=== PATIENT | female | born 1950 | race Caucasian/White ===

== ENCOUNTER → 2021-05-15 09:16 | Outpatient (BNVA) | payer MEDICARE, SELFPAY | PROVIDERS: Referring Provider Nurse Practitioner; Visit Provider Specialist | DX: M17.11 Unilateral primary osteoarthritis, right knee (principal) | CPT/HCPCS: 73560; 73565 ==

== ENCOUNTER 2021-05-23 06:00 | Outpatient (RCR) | payer MEDICARE, SELFPAY | END 2021-06-22 23:59 | disposition home or self-care (01) | LOC: SPT 06:00 | PROVIDERS: PCP Nurse Practitioner; Referring Provider Specialist; Visit Provider Specialist | DX: M17.11 Unilateral primary osteoarthritis, right knee (principal) | CPT/HCPCS: 97110; 97162 ==

== ENCOUNTER 2021-06-23 06:00 | Outpatient (RCR) | payer MEDICARE, SELFPAY | END 2021-07-05 23:00 | disposition home or self-care (01) | LOC: SPT 06:00 | PROVIDERS: PCP Nurse Practitioner; Referring Provider Specialist; Visit Provider Specialist | DX: M17.11 Unilateral primary osteoarthritis, right knee (principal) | CPT/HCPCS: 97110 ==

== ENCOUNTER 2022-09-27 10:01 | Outpatient (CLI) | payer MEDICARE, SELFPAY ==
--- NOTE | 2022-09-27 10:17 | XRR_ITS ---
PROCEDURE INFORMATION: Exam: XR Right Shoulder Exam date and time: 09/27/2022 10:34 AM Age: 72 years old Clinical indication: Pain; Shoulder; Right; Additional info: Pain in R shoulder TECHNIQUE: Imaging protocol: Radiologic exam of the right shoulder. Views: 2 or more views. COMPARISON: No relevant prior studies available. FINDINGS: Bones/joints: No acute fracture or dislocation. Mild acromioclavicular joint arthropathy. Soft tissues: Normal. XR/XR shoulder RT min 2V* [id number] IMPRESSION: 1. No acute fracture. 2. Mild AC joint arthropathy.
== END 2022-09-27 10:02 | disposition home or self-care (01) ==
PROVIDERS: PCP Nurse Practitioner Family; Visit Provider Nurse Practitioner Family
DX: M25.511 Pain in right shoulder (principal); M12.9 Arthropathy, unspecified
CPT/HCPCS: 73030

== ENCOUNTER 2022-11-12 08:31 | Outpatient (CLI) | payer MEDICARE, SELFPAY ==
--- NOTE | 2022-11-12 | MM_ITS ---
WS: [id number] BILATERAL 3D TOMOSYNTHESIS DIGITAL SCREENING MAMMOGRAPHY WITH CAD CLINICAL INFORMATION: SCREENING HISTORY: Screening mammogram. No current complaints. COMPARISON: 2016 TECHNIQUE: Bilateral CC and MLO views. FINDINGS: Scattered fibroglandular densities bilaterally. Small ovoid nodule upper outer RIGHT breast appears n ew from previous. Recommend further evaluation with RIGHT breast diagnostic mammography and ultrasoun d. LEFT breast is unremarkable. IMPRESSION: MM/[place] [id number] BI-RADS: 0-Incomplete: Need additional imaging evaluation FOLLOW UP: Need Additional Imaging
== END 2022-11-12 08:32 | disposition home or self-care (01) ==
PROVIDERS: PCP Nurse Practitioner Family; Visit Provider Nurse Practitioner Family
DX: Z12.31 Encounter for screening mammogram for malignant neoplasm of breast (principal)
CPT/HCPCS: 77063; 77067

== ENCOUNTER 2022-12-20 10:01 | Outpatient (CLI) | payer MEDICARE, SELFPAY ==
--- NOTE | 2022-12-20 10:08 | MM_ITS ---
WS: [id number] RIGHT 3D TOMOSYNTHESIS DIGITAL MAMMOGRAPHY WITH CAD CLINICAL INFORMATION: ABNORMAL MAMMO HISTORY: Additional views COMPARISON: 11/12/2022 TECHNIQUE: 4 views of the right breast were obtained. FINDINGS: Scattered fibroglandular densities of the right breast. Previously described 6 mm ovoid density upper outer RIGHT breast is persistent on spot compression views. Ultrasound is pending. ULTRASOUND BREAST RIGHT TECHNIQUE: Ultrasound right breast focused area of concern. CLINICAL INFORMATION: ABNORMAL MAMMO FINDINGS: Ultrasound RIGHT breast upper outer quadrant. At the 10 o'clock position, 5 cm from the nipple, there is a normal-appearing 6 mm lymph node with normal fatty hilum. No other suspicious findings in the u pper outer quadrant. Recommend return to annual screening mammography. IMPRESSION: MM/[place] [id number] BI-RADS: 2-Benign FOLLOW UP: 1 Year Follow-up Recommend return to annual screening mammography.
== END 2022-12-20 10:02 | disposition home or self-care (01) ==
PROVIDERS: PCP Nurse Practitioner Family; Visit Provider Nurse Practitioner Family
DX: R92.8 Other abnormal and inconclusive findings on diagnostic imaging of breast (principal)
CPT/HCPCS: 76642; 77061; G0279

== ENCOUNTER 2023-01-22 14:09 | Outpatient (CLI) | payer MEDICARE, SELFPAY ==
--- NOTE | 2023-01-22 14:20 | MR_ITS ---
WS: [id number] MRI RIGHT SHOULDER HISTORY: RIGHT SHOULDER PAIN COMPARISON: None available. TECHNIQUE: Multiplanar sequences of the shoulder joint are submitted. Moderate to severe AC joint arthritis with encroachment upon the myotendinous portion of the supraspi natus. Mild subacromial impingement. Biceps tendon is present at the bicipital groove. There is a par tial tear of the biceps tendon. Small amount of increased fluid in the tendon sheath. No os acromion. Fluid gap involving the supraspinatus tendon extends over a length of 9 mm directly over the humeral head. Tendon is retracted to the medial humeral head. Moderate to severe atrophy of the supraspinatus muscle. Additional mild atrophy of the subscapularis and the infraspinatus muscles. Increased fluid in the subscapularis recess. No additional rotator cuff tendon tears are identified. Moderate narrowi ng the glenohumeral joint. Small amount of marrow edema and subchondral cysts in the anterior inferio r glenoid. No definite labral tears are identified. There is some fraying along the articular surface s. IMPRESSION: 1. Complete tear supraspinatus tendon measures 9 mm over the superior humeral head. Supraspinatus ten don is retracted to the medial humeral head. 2. Moderate to severe AC joint arthritis with encroachment upon the myotendinous portion of the supra spinatus. 3. Partial tear biceps tendon with mild tenosynovitis. 4. Moderate to severe atrophy of the supraspinatus muscle. Mild atrophy of the subscapularis and infr aspinatus muscles. 5. Glenohumeral joint narrowing with subchondral cystic changes in the anterior inferior glenoid.
== END 2023-01-22 14:10 | disposition home or self-care (01) ==
PROVIDERS: PCP Nurse Practitioner Family; Visit Provider Nurse Practitioner Family
DX: M75.121 Complete rotator cuff tear or rupture of right shoulder, not specified as traumatic (principal); S46.211A Strain of muscle, fascia and tendon of other parts of biceps, right arm, initial encounter; X58.XXXA Exposure to other specified factors, initial encounter; M62.58 Muscle wasting and atrophy, not elsewhere classified, other site
CPT/HCPCS: 73221

== ENCOUNTER → 2023-02-20 13:40 | Outpatient (BNVA) | payer MEDICARE, SELFPAY | PROVIDERS: PCP Nurse Practitioner Family; Visit Provider Specialist | DX: M12.811 Other specific arthropathies, not elsewhere classified, right shoulder | CPT/HCPCS: 20610; 99214; J1100; J2795; J3301 ==

== ENCOUNTER → 2023-04-01 13:00 | Outpatient (BNVA) | payer MEDICARE, SELFPAY | PROVIDERS: PCP Nurse Practitioner Family; Visit Provider Specialist | DX: M17.11 Unilateral primary osteoarthritis, right knee (principal) | CPT/HCPCS: 73560; 73565; 99214 ==

== ENCOUNTER → 2023-04-18 10:58 | Outpatient (BNVA) | payer MEDICARE, SELFPAY | PROVIDERS: PCP Nurse Practitioner Family; Visit Provider Specialist | DX: M17.11 Unilateral primary osteoarthritis, right knee (principal) | CPT/HCPCS: 20610; J7318 ==

== ENCOUNTER → 2023-04-23 10:53 | Outpatient (BNVA) | payer MEDICARE, SELFPAY | PROVIDERS: PCP Nurse Practitioner Family; Referring Provider Nurse Practitioner Family; Visit Provider Specialist | DX: G56.02 Carpal tunnel syndrome, left upper limb (principal) | CPT/HCPCS: 95910; 95911 ==

== ENCOUNTER 2023-05-27 17:19 | Emergency (ER) | payer MEDICARE, SELFPAY ==
[2023-05-27 17:33] VITALS: BP 178/78; PULSE 66; RESP 12; TEMP 36.7; O2SAT 94; BMI 29.7
--- NOTE | 2023-05-27 17:44 | W.ED.EYEPROB ---
HPI - Eye Problem General: Chief complaint: Eye Problems Stated complaint: eye Time Seen by Provider: 05/27/23 17:36 Source: patient Mode of arrival: ambulatory History of Present Illness: 73-year-old female presents emergency room complaining of swelling redness some itching around the left eye. She does not recall getting a foreign body and its mildly inflamed and redness crusting at the edge of the eyelid minimal redness of the sclera. No grinding activities she does not believe she has a foreign body in the eye but it does itch at times. chief complaint: eye pain and eye redness Onset (ago): hour(s) Onset description: gradual Duration: constant Location: left eye Eye Symptoms: burning, redness and itching Associated symptoms: Denies cough, fever(s), headache(s), nausea, neck pain, numbness, rhinorrhea, short of breath, vomiting or weakness Treatments Prior to Arrival: none Review of Systems Const: Denies: fever(s) Eyes: Reports: eye discomfort and eye discharge; Denies: blurry vision or photophobia Card: Denies: chest pain Resp: Denies: dyspnea GI: Denies: nausea or vomiting : Denies: dysuria, urinary frequency or urinary urgency Musc: Denies: neck pain Skin/Breast: Denies: rash Neuro: Denies: headache(s) PFSH ED PFSH: Social History Smoking and tobacco/nicotine status: never used tobacco/nicotine Physical Exam Const: COMMON NORMALS: no acute distress GENERAL APPEARANCE: cooperative and comfortable ORIENTATION/CONSCIOUSNESS: Yes awake, Yes oriented to person, Yes oriented to place and Yes oriented to time HENMT: COMMON NORMALS: normocephalic, atraumatic and hearing grossly normal bilaterally HEAD & SCALP: normocephalic and atraumatic Eye: OTHER: Left eye is mildly reddened sclera slightly injected the upper and lower eyelids are inflamed swollen some crusting along the tarsal plate. Scant amount of purulent drainage Neuro: SENSORIUM/ORIENTATION: Yes oriented to person, Yes oriented to place and Yes oriented to time Skin: COMMON NORMALS: no rashes or lesions noted GENERAL SKIN EXAM: no rashes or lesions noted Course Vital Signs: Vital signs: Vital Signs Temperature 98.0 F 05/27/23 18:08 Pulse Rate 64 03/04/24 18:08 Respiratory Rate 12 05/27/23 18:08 Blood Pressure 156/82 05/27/23 18:08 Pulse Oximetry 97 05/27/23 18:08 Oxygen Delivery Me thod Room Air 05/27/23 17:54 MDM - Eye Problem Medical Decision Making Blepharitis left eye start oral antibiotics eyedrops warm compresses follow-up with ophthalmology optometry if not improving Medical Records I reviewed the patient's medical records. No radiology studies performed this visit Discharge Plan Discharge Patient Disposition: Home Clinical Impression: Blepharitis of left eye Condition: Stable Prescriptions: No Action Durolane 60 mg/3 mL syringe 3 ml intra-articular ONCE Qty: 3 0RF vitamin A-vitamin E 25,000-30 unit Capsule 1 cap PO DAILY calcium phos,dibas-vitamin D3 77-400 mg-unit Tablet 1 tab PO DAILY Collagen Skin Renewal 30-833.3 mg Tablet 1 tab PO DAILY acetaminophen 325 mg capsule 325 mg PO Q4H PRN (Reason: fever or pain) Qty: 60 0RF Colace 100 mg capsule 100 mg PO BID Qty: 60 0RF hydrocodone-acetaminophen 5-325 mg tablet 1 tab PO Q4H PRN (Reason: pain) Qty: 20 0RF metronidazole 500 mg tablet 500 mg PO BID 14 Days Qty: 28 0RF Discharge Orders: Discharge ED (Routine); Ordered 05/27/23 Ordered By: Augusto Casillas Referrals: Mary Anne Fitzpatrick FNP [Primary Care Provider] - Discharge Diet: Usual diet Discharge Activity: Resume usual activity Patient Instructions: Blepharitis (ED), Opioid Safety, Pain Management Activity Restrictions/Additional Instructions: Thank you for choosing [facility] for your healthcare needs today. Please realize this is an emergency room and that we are providing you with a medical screening exam and this may not be complete and all inclusive of all the testing and or work up that you may need to determine your ailment or severity of your illness. It is very important that you follow up as instructed or that you return to the Emergency Department should you have concerns or if your condition changes or worsens in any way. Coding Level of Care Code ED Screener Operator for Jensen Desir
[2023-05-27 17:54] VITALS: BP 156/82; PULSE 64; O2SAT 97
[2023-05-27] MEDS: fluorescein 1 mg Strip EYE-LEFT (17:56)
[2023-05-27] MEDS: tetracaine 0.5% Op Soln 4 mL Btl 1 DROP EYE-LEFT (17:56)
[2023-05-27 18:08] VITALS: BP 156/82; PULSE 64; RESP 12; TEMP 36.7; O2SAT 97
--- NOTE | 2023-05-28 09:18 | PC.NURSE ---
[facility] called and stated that they do not have cephalexin 750 mg available to them, they asked if it could be changed to [address] Casillas and he changed the prescription to 500 mg cephalexin PO TID for 7 days.
== END 2023-05-27 18:09 | disposition home or self-care (01) ==
PROVIDERS: Emergency Provider Family Medicine; PCP Nurse Practitioner Family
DX: L29.9 Pruritus, unspecified (principal); H01.00B Unspecified blepharitis left eye, upper and lower eyelids
CPT/HCPCS: 99283

== ENCOUNTER 2023-05-28 15:39 | Observation (INO) | payer MEDICARE, SELFPAY ==
[2023-05-23 09:23] LABS: Add Urine Microscopic? NO; Charge for UA Resulting for Rev
--- NOTE | 2023-05-23 09:26 | ECG_ITS ---
[facility] Test Date: 2023-05-23 Pat Name: Melina Mac Department: Room: Gender: Female Clinical Dietitian: : 1950 Requested By: Blade Kent Order Number: [id number] Nik MD: Tevin Jones M.D. Measurements Intervals [place] Rate: 61 P: 57 [place]: 174 QRS: -39 QRSD: 97 T: 33 QT: 372 QTc: 377 Interpretive Statements SINUS RHYTHM LEFT AXIS DEVIATION [QRS AXIS < -30] LOW QRS VOLTAGE IN PRECORDIAL LEADS [QRS DEFLECTION < 1.0 mV IN CHEST LEADS] INCOMPLETE RIGHT BUNDLE BRANCH BLOCK [90+ ms QRS DURATION, TERMINAL R IN V1/V2, 40+ ms S IN I/aVL/V4/V5/V6] POSSIBLE ANTERIOR MYOCARDIAL INFARCTION , OF INDETERMINATE AGE [30 ms Q WAVE IN V3/V4, OR R < 0.2 mV IN V4] No previous ECG available for comparison Electronically Signed On 05-23-2023 21:14:53 SPRING TIER by Tevin Jones M.D. [id number]
[2023-05-23 09:29] LABS: Basophils % 0.4 %; Eosinophils # 0.4 10^3/uL (0.0-0.8); Hematocrit 41.2 % (36-47); Lymphocytes # 2.2 10^3/uL (0.8-4.8); Lymphocytes % 30.7 %; Mean Corpuscular HGB Conc 31.6 g/dL (30-55); Mean Corpuscular Hemoglobin 30.8 pg (27-33); Mean Corpuscular Volume 97.6 fl (85-98); Mean Platelet Volume 9.2 fL (7.4-10.4); Monocytes # 0.6 10^3/uL (0.2-0.9); Monocytes % 8.3 %; Neutrophils # 3.92 10^3/uL (1.8-7.7); Neutrophils % 54.3 %; Nucleated Red Blood Cells % 0 %; Platelet Count 267 10^3/cmm (157-399); Red Blood Count 4.22 10^6/uL (3.85-5.65); White Blood Count 7.21 10^3/uL (3.29-11.43)
[2023-05-23 09:40] LABS: Bilirubin Urine Neg (Negative); Blood Urine Neg (Negative); Glucose Urine UA Norm (Normal); Ketones Urine Negative (Negative); Leukocyte Esterase Urine Negative (Negative); Nitrate Urine Negative (Negative); Protein Urine Neg (Negative); Specific Gravity, Urine 1.015 (1.005-1.030); Urine Appearance Clear (CLEAR); Urine Color Yellow (Yellow); Urobilinogen Urine Neg (Negative); pH Urine 6 (5-7)
[2023-05-23 09:54] LABS: Alanine Aminotransferase 19 U/L (0-33); Albumin Level 3.9 g/dL (3.5-5.2); Alkaline Phosphatase 97 U/L (35-105); Aspartate Amino Transferase 16 U/L (0-32); Blood Urea Nitrogen 14 mg/dL (8-23); Calcium 9.3 mg/dL (8.5-10.5); Carbon Dioxide 26 mmol/L (22-29); Chloride 103 mmol/L (98-107); Globulin 2.4 g/dL (1.3-4.6); Glucose 101 mg/dL (65-115); Osmolality Calculated 289 mOsm/kg (285-295); Sodium 139 mmol/L (136-145); Total Bilirubin 0.3 mg/dL (0.15-1.2); Total Protein 6.3 g/dL (6.6-8.7)
--- NOTE | 2023-05-23 10:18 | ANES.PREANE2 ---
Pre-Anesthetic Assessment Height/Weight: Height 1.65 m Operation Date: 05/28/23 12:45 Proposed Procedures p Total vaginal hysterectomy, bilateral salpingo-oophorectomy 58026, Anterior and posterior colporrhaphy 85142, single incision sling 27028,N81.10,N81.2,(Not Applicable) - Micah Wharton MD s Salpingo-Oophorectomy (Vaginal)(Not Applicable) - Micah Wharton MD s Anterior Repair Anterior Colporrhaphy(Not Applicable) - Micah Wharton MD s Posterior Repair Posterior Colporrhaphy(Not Applicable) - Micah Wharton MD s Sling Single Incision Sling(Not Applicable) - Micah Wharton MD Familial anesthetic complications: none Was Beta David taken within 24 hours: N/A Was Clonidine taken within 24 hours: N/A Social No alcohol and No tobacco Exam alert, oriented x 3, clear to auscultation bilaterally and regular rate & rhythm Airway Submandibular: within normal limits Cervical ROM: within normal limits Mallampati: Class II Dentition: chipped Musc/skel Osteoarthritis/DJD Anesthetic Plan ASA status: 1 Anesthesia: General Medications/Allergies Home Medications Medication Instructions Recorded Confirmed Last Taken Type hyaluronate sodium, stabilized 60 3 ml intra-articular ONCE #3 mL 04/01/23 05/23/23 04/30/23 Rx mg/3 mL intra-articular syringe (Durolane) Allergies Allergy/AdvReac Type Severity Reaction Status Date / Time celecoxib [From Celebrex] Allergy ADR-Halluci Verified 05/20/23 08:17 nating hydrocodone Allergy ADR-Anxiety Verified 05/20/23 08:17 [facility] Anesthesia Social History Smoking and tobacco/nicotine status: never used tobacco/nicotine Data Anesthesia 05/23/23 09:10 05/23/23 09:10 Short CBC 05/23/23 Range/Units 09:10 WBC 7.21 (3.29-11.43) 10^3/uL Hgb 13.00 (11.27-16.99) g/dL Hct 41.2 (36-47) % MCV 97.6 (85-98) fl Plt Count 267 (157-399) 10^3/cmm Neut % (Auto) 54.3 % Neut # (Auto) 3.92 (1.8-7.7) 10^3/uL BMP 05/23/23 09:10 Sodium 139 Potassium 4.0 Chloride 103 Carbon Dioxide 26 BUN 14 Creatinine 0.5 Glucose 101 Calcium 9.3 Liver Function 05/23/23 Range/Units 09:10 Total Bilirubin 0.3 (0.15-1.2) mg/dL AST 16 (0-32) U/L ALT 19 (0-33) U/L Alkaline Phosphatase 97 (35-105) U/L Albumin 3.9 (3.5-5.2) g/dL Urine 05/23/23 Range/Units 09:12 Urine Color Yellow (Yellow) Urine Appearance Clear (CLEAR) Urine pH 6 (5-7) Ur Specific [place] 1.015 (1.005-1.030) Urine Protein Neg (Negative) Urine Glucose (UA) Norm (Normal) Urine Ketones Negative (Negative) Urine Nitrate Negative (Negative) Urine Bilirubin Neg (Negative) Ur Leukocyte Esterase Negative (Negative) Cardiac Studies: No Data to Display
[2023-05-28] VITALS (17 sets, daily range): BP systolic 91–145; BP diastolic 48–78; PULSE 50–95; RESP 15–17; TEMP 36.6–36.8; O2SAT 87–98; BMI 29.9
[2023-05-28] MEDS: sodium chloride 0.9% 1,000 ML 30 ML IV (11:26)
--- NOTE | 2023-05-28 11:26 | P.ANESASSM_ITS ---
Pre-Anesthetic Assessment Height/Weight: Height 1.65 m Weight 81.647 kg Temp Pulse Resp BP Pulse Ox O2 Del Method 98.3 F 68 16 145/73 95 Room Air 05/28/23 11:02 05/28/23 11:02 05/28/23 11:02 05/28/23 11:02 05/28/23 11:02 05/28/23 11:02 Preop Diagnosis: uterine prolapse, cystocele, rectocele Operation Date: 05/28/23 12:45 Proposed Procedures p Total vaginal hysterectomy, bilateral salpingo-oophorectomy 54214, Anterior and posterior colporrhaphy 75064, single incision sling 38124,N81.10,N81.2,(Not Applicable) - Micah Wharton MD s Salpingo-Oophorectomy (Vaginal)(Not Applicable) - Micah Wharton MD s Anterior Repair Anterior Colporrhaphy(Not Applicable) - MD juan daniel Gibson Posterior Repair Posterior Colporrhaphy(Not Applicable) - Micah Wharton MD s Sling Single Incision Sling(Not Applicable) - Micah Wharton MD Last intake: Intake Last Liquid Date 05/27/23 Last Liquid Time 23:00 Last Solid Date 05/27/23 Last Solid Time 20:00 Social No alcohol and No tobacco Airway Submandibular: within normal limits Cervical ROM: within normal limits Mallampati: Class I Anesthetic Plan Anesthesia: General Risk of > 500 ml blood loss (7ml/kg in children): No Medications/Allergies Home Medications Medication Instructions Recorded Confirmed Last Taken Type hyaluronate sodium, stabilized 60 3 ml intra-articular ONCE #3 mL 04/01/23 05/23/23 04/30/23 Rx mg/3 mL intra-articular syringe (Durolane) cephalexin 750 mg capsule 750 mg PO BID 7 days #14 caps 05/27/23 05/28/23 Unknown Rx tobramycin-dexamethasone 0.3 %-0.1 1 applic ophthalmic (eye) QID 7 05/27/23 05/28/23 Unknown Rx % eye ointment (TobraDex) days #3.5 grams ascorbic acid 30 mg-collagen, 1 tab PO DAILY 05/28/23 05/28/23 05/24/23 History hydrolyzed 833.3 mg tablet (Collagen Skin Renewal) calcium phosphate,dibasic 77 1 tab PO DAILY 05/28/23 05/28/23 05/28/23 History mg-vitamin D3 400 unit tablet vitamin A-vitamin E 25,000 unit-30 1 cap PO DAILY 05/28/23 05/28/23 05/24/23 History unit capsule Allergies Allergy/AdvReac Type Severity Reaction Status Date / Time celecoxib [From Celebrex] Allergy ADR-Halluci Verified 05/28/23 10:56 [facility] hydrocodone Allergy ADR-Anxiety Verified 05/28/23 10:56 [facility] Anesthesia Social History Smoking and tobacco/nicotine status: never used tobacco/nicotine Data Anesthesia 05/23/23 09:10 05/23/23 09:10 Cardiac Studies: 2 No Data to Display
[2023-05-28] MEDS: enoxaparin 30 mg/0.3 mL Syringe SUBCUT (11:27)
[2023-05-28] MEDS: scopolamine 1.5 Patch 1 PATCH TRANSDERMA (11:30)
--- NOTE | 2023-05-28 12:10 | W.PM.OPSUD ---
Surgery/Procedure H&P Update DATE OF PROCEDURE: May 28, 2023 DATE H&P PERFORMED: 05/20/23 H&P UPDATE INFORMATION: I have reviewed H&P completed within last 30 days, I have examined patient prior to procedure and No changes to prior documentation PREOP DIAGNOSIS: uterine prolapse, cystocele, rectocele PLANNED PROCEDURE: Operation Date: 05/28/23 12:45 Proposed Procedures p Total vaginal hysterectomy, bilateral salpingo-oophorectomy 79077, Anterior and posterior colporrhaphy 38238, single incision sling 47977,N81.10,N81.2,(Not Applicable) - Micah Wharton MD s Salpingo-Oophorectomy (Vaginal)(Not Applicable) - Micah Wharton MD s Anterior Repair Anterior Colporrhaphy(Not Applicable) - Micah Wharton MD s Posterior Repair Posterior Colporrhaphy(Not Applicable) - Micah Wharton MD s Sling Single Incision Sling(Not Applicable) - Micah Wharton MD
[2023-05-28] MEDS: ceFOXitin 2,000 MG in sodium chloride 0.9% (plus) 50 ML 100 MG IV (12:34)
[2023-05-28] MEDS: lidocaine-epi 1% 20 mL INJ INJECTION ×2 (13:09→15:20)
--- NOTE | 2023-05-28 15:25 | P.OP_ITS ---
Operative Report Date of procedure: May 28, 2023 Pre-op diagnosis: Pelvic organ prolapse stage III Cystocele stage III Rectocele stage III Post-op diagnosis: same Procedure done: Total vaginal hysterectomy with right salpingo-oophorectomy Anterior colporrhaphy augmented with allograft Single incision mid urethral sling Posterior colporrhaphy Sacrospinous fixation Cystoscopy Specimens removed/disposition: Uterus Right fallopian tube Surgeon: Micah Wharton MD Estimated blood loss (mL): 75 IV fluids (mL): 1,000 Urine output (mL): 200 Procedure: After informed consent and risks, benefits, indications and alternatives reviewed with the patient was taken to the operating room. The patient was placed in dorsal lithotomy position prepped, and draped in the usual sterile fashion. The pre-procedure timeout verifying the correct patient, procedure, site and side, could not requirements was performed and acknowledge by the OR team. A Soria catheter was placed. A Bookwalter vaginal retractor was placed into the vagina in usual manner visualize the cervix. Cervix was grasped with a single tooth tenaculum and circumferentially infiltrated with 2% lidocaine with epinephrine. Then cervix was circumferentially incised with bovie and the bladder was dissected off the pubovesical cervical fascia anteriorly with a sponge stick and Metzenbaum scissors. The anterior peritoneal reflection was identified and the anterior cul-de-sac was entered sharply with Metzenbaum scissors. The same procedure was performed posteriorly and a posterior colpotomy was made through the posterior cul-de-sac space without difficulty and the posterior blade of the Bookwalter vaginal retractor was advanced posteriorly into the cul-de-sac. At this time, the left and right uterosacral ligaments were isolated and ligated with 0 Vicryl. The LigaSure device was placed over the uterosacral ligaments on either side and was then used in a serial fashion up through the cardinal ligaments bilaterally cross-clamped, cut, and sealed with the LigaSure device. Finally, the uterine arteries were cross-clamped, cut, sealed and ligated with the LigaSure device. Hemostasis was assured. The broad ligaments were then serially clamped, sealed and cut with the LigaSure device on both sides. Excellent hemostasis was visualized. Both cornua were clamped, sealed and cut with the LigaSure device. Then the pedicles were then suture ligated with excellent hemostasis. The uterus was excised and submitted for pathologic evaluation. No other abnormalities were noted in the pelvic cavity. Then the right side Infundibular ligament was identified. The ureter was confirmed along the pelvic side wall and peristalsis was noted. The LigaSure device was then used to clamp, sealed and transcepted at middistance, again being sure to be clear of the ureter and the fallopian tube. The ovary could not safely be removed. The same attempt was performed on the left side but the left ovary was also could not safely be removed. Good hemostasis was assure on both sides. The peritoneum was then closed in a pursestring fashion with 0 Vicryl suture. The vaginal cuff angles were closed with [id number] #0 Vicryl suture on both sides and transfixed with the ipsilateral cardinal and uterosacral ligaments. The remainder of the vaginal cuff was closed with #0 Vicryl in a running locked fashion. Then proceeded to perform the mid urethral sling. The anterior vaginal mucosa beneath the midurethra was infiltrated with 0.5% Marcaine with epinephrine. A vertical midline incision was made beneath the midurethra, nearly 1.5 cm length. Careful submucosal dissection was performed bilaterally up to the interior portion of the inferior pubic ramus. The insertion of adductor longus tendon on the patient?s pubic ramus was identified as reference land madeline. Palpated the notch along the internal edge of ischiopubic ramus where the adductor longus tendon and the inferior pubic ramus meet. The Altis single incision sling (SIS) was selected. Then the needle of the SIS inserted aiming at the location of this notch. One of the integrated self- fixating tips place onto the needle by sliding it over the end of the needle. The needle/sling assembly was inserted toward the location of identified reference notch making sure that the flat of the handle is perpendicular to the desired path. The needle was tracked along the posterior surface of the ischiopubic ramus until the midline madeline on the mesh is approximately at the midline position under the urethra. The needle was removed and the same was repeated on the contralateral side until the appropriate sling tension under the urethra was achieved ensuring that the mesh lays flat. The needle was removed and vaginal incision was closed in a running interlocking fashion with 2-0 Vicryl. Then the vaginal mucosa was then injected in the midline with normal saline. The vaginal mucosa was scored in the midline with the Bovie approximately 1 cm medial to the urethral meatus to 1 cm distal to the vaginal cuff. This vaginal mucosa was then undermined and then incised in the midline with the Metzenbaum scissors. The lateral aspects of the vaginal mucosa were then grasped with the Allis clamps and the vaginal mucosa was then dissected off the underlying fascia with the Metzenbaum scissors. Again, there was noted to be quite a bit of oozing at the incision, which was controlled with cautery. After adequate dissection was performed, bilaterally. An Coloplast dermis allograft was modified at time of application to fit spacea, 3 x 3 cm piece . The all ograft was placed in front of cystocele ready to be implanted facing the vagina mucosa. Suture is placed at distal end of graft and placed towards vaginal cuff. Final suture is placed on proximal portion of the graft to complete the placement overlying the bladder. Then Interrupted vertical mattress sutures of 0 Vicryl were used to elevate the cystocele superiorly. The excessive vaginal mucosa was then trimmed with the Metzenbaum scissors and the vaginal mucosa was then reapproximated in the running interlocking fashion with 2-0 Vicryl. A posterior repair was performed next. An incision was made across the introitus. Metzenbaum scissors were used to tunnel beneath posterior vaginal mucosa until the apex of the rectocele bulge was reached. The posterior vaginal mucosa is opened in the routine fashion as described previously in Posterior Repair. A finger is inserted through the incision in the posterior vaginal mucosa, dissecting out the rectovaginal space (RVS). The right rectal pillar (RRP) is identified. The rectal pillar can be bluntly perforated either with the finger and with the tip of a long Zita clamp. A thing malleable retractor is used for exposing the rectovaginal space in order to enter the pararectal space with retraction of the cardinal ligament, vagina, and rectum. Displacing the rectum to the left and the cardinal ligament and ureter anteriorly. A sponge dissector is used to bluntly dissect the sacrospinous ligament removing areolar tissue. The ischial spine was palpated directly, and a area approximately 2 cm medial to the spine was selected for insertion of the Anchorsure transvaginal sacrospinous fixation system. One end of the suture of Anchoresure system inserted through the sacrospinous ligament is placed through the muscular layer of the vagina. In a similar manner, the second suture is placed. The opposite end of the suture in the sacrospinous ligament is left free and held on a small hemostat. Then traction on this suture will draw the vaginal vault directly to the ligament, where a square knot affixes it to the sacrospinous ligament. After the kem stich is tied the second safety stich is tied. Then the colporrhaphy/vaginal repair is carried out in routine fashion. At this point, the rectum was from the posterior vaginal mucosa using sharp and blunt dissection, and the rectal bulge imbricated in the midline with interrupted sutures of 2-0 vicryl suture. Levator ani muscles on either side were approximated in the midline with interrupted 0 Vicryl sutures. Excess posterior vaginal mucosa was excised, and the vaginal episiotomy was repaired by approximating the posterior vaginal mucosa with a suture of Vicryl #0. The patient was given indigo carmine IV. At this time, instruments were removed from the vagina at hemostasis assured. Then the Soria catheter was removed and cystoscope was inserted. The bladder was filled with sterile water. Complete evaluation of the bladder mucosa was performed noting no lacerations, dimpling, tears, bleeding of the mucosa or muscular layers. Both ureteral orifices were identified. Prompt excretion of urine from both ureteral orifices was noted. Cystoscope was withdrawn. Soria catheter was then placed yielding clear michael urine. A vaginal packing with Premarin cream was placed and the patient was taken out of dorsal lithotomy position and awakened from the general anesthesia. The patient tolerated the procedure well and was taken to the PACU recovery room in a stable condition. Sponge, lap, needle and instruments counts were correct x3.
--- NOTE | 2023-05-28 17:04 | ANE.PACU2 ---
Inpatient post-anesthesia follow up: Vital signs: Temperature 98.1 F Pulse Rate 91 Respiratory Rate 16 Blood Pressure 125/65 Pulse Oximetry 94 Oxygen Delivery Me thod Nasal Cannula Oxygen Flow Rate 2 Fraction of Inspir ed Oxygen Additional Comments: no apparent anesthetic complications noted
[2023-05-28] MEDS: ketorolac 30 mg/mL INJ IVP ×2 (17:48→22:17)
[2023-05-28] MEDS: docusate sodium 100 mg Capsule PO (17:48)
[2023-05-28] MEDS: dextrose 5%-lactated ringers 1,000 ML 125 ML IV (22:59)
[2023-05-29] VITALS: O2SAT 96
[2023-05-29 00:42] VITALS: O2SAT 89
[2023-05-29 00:43] VITALS: O2SAT 93
[2023-05-29 03:15] VITALS: BP 106/55; PULSE 51; RESP 16; O2SAT 95
[2023-05-29] MEDS: ketorolac 30 mg/mL INJ IVP (04:37)
[2023-05-29 04:57] LABS: Hematocrit 34.1 % (36-47); Mean Corpuscular HGB Conc 32.3 g/dL (30-55); Mean Corpuscular Hemoglobin 31.2 pg (27-33); Mean Corpuscular Volume 96.6 fl (85-98); Platelet Count 240 10^3/cmm (157-399); Red Blood Count 3.53 10^6/uL (3.85-5.65); White Blood Count 19.45 10^3/uL (3.29-11.43)
--- NOTE | 2023-05-29 09:10 | PC.NURSE ---
Pt voided 75mL and post void residual was 12mL
[2023-05-29] MEDS: docusate sodium 100 mg Capsule PO (10:38)
[2023-05-29] MEDS: ibuprofen 800 mg tablet PO (10:50)
[2023-05-29 10:51] VITALS: BP 101/61; PULSE 58; RESP 16; TEMP 36.5; O2SAT 98
--- NOTE | 2023-05-29 11:29 | P.DS_ITS ---
Discharge Providers [employer] Date of Admission: 05/28/23 15:39 Date of Discharge: 05/29/23 Attending Provider at Admission: Micah Wharton MD Attending Provider at Discharge: Micah Wharton MD Primary Care Provider: TISHA Taylor Reason for Visit Reason for Visit: N81.10, N81.2, N81.6 Hospital Course Hospital Course Mrs. Mac 73-year-old female with a history of pelvic organ prolapse cystocele stage III rectocele stage III admitted for total vaginal hysterectomy, anterior colporrhaphy augmented with allograft, mid urethral sling, posterior colporrhaphy and sacrospinous fixation. The procedures were performed without complication. Overnight observation was uneventful. She is afebrile and hemodynamically stable postoperative day 1. Tolerating diet well. Ambulating without difficulty. She was counseled regarding pelvic rest for 6 weeks (no sex, no tampons, no vaginal douches). Return to the emergency room if any fever, increased bleeding or pain. She was also counseled regarding soft mechanical diet for the next 2 weeks. Physical Exam Narrative: GA: Alert and oriented ?3. HEENT: WNL. Heart: Regular rate and rhythm. Lungs: Clear to auscultation bilaterally. Abdomen: Bowel sounds present, nontender. COMPLIANCE PARALEGAL: scant bleeding. Extremities: No edema, no cyanosis, no calves pain. Urinary Catheter Management: Soria: Cath Placed During This Visit: yes, but has since been removed by the nurse Reason for Continuing Indwelling Catheter: Decision to DC Catheter Urinary Catheter Date of Insertion: 05/28/23 Urinary Catheter Time of Insertion: 13:00 Date Urinary Catheter Removed: 05/29/23 Time Urinary Catheter Discontinued: 05:00 History History History 2 Term 2 0 Miscarriages/Ectopic 0 Living Children 2 Discharge Data Studies Completed and Pending Pending at discharge Category Date Time Status Pathology: Surgical [PTH] Routine Pth 05/28/23 15:28 Received Laboratory Results WBC 19.45 10^3/uL (3.29-11.43) H 05/29/23 04:53 RBC 3.53 10^6/uL (3.85-5.65) L 05/29/23 04:53 Hgb 11.00 g/dL (11.27-16.99) L 05/29/23 04:53 Hct 34.1 % (36-47) L 05/29/23 04:53 MCV 96.6 fl (85-98) 05/29/23 04:53 MCH 31.2 pg (27-33) 05/29/23 04:53 MCHC 32.3 g/dL (30-55) 05/29/23 04:53 RDW 13.0 % (12.1-15.1) 05/29/23 04:53 Plt Count 240 10^3/cmm (157-399) 05/29/23 04:53 MPV 9.0 fL (7.4-10.4) 05/29/23 04:53 Neut % (Auto) 54.3 % 05/23/23 09:10 Lymph % (Auto) 30.7 % 05/23/23 09:10 [place] % (Auto) 8.3 % 05/23/23 09:10 Eos % (Auto) 6.0 % 05/23/23 09:10 Baso % (Auto) 0.4 % 05/23/23 09:10 Neut # (Auto) 3.92 10^3/uL (1.8-7.7) 05/23/23 09:10 Lymph # (Auto) 2.2 10^3/uL (0.8-4.8) 05/23/23 09:10 [place] # (Auto) 0.6 10^3/uL (0.2-0.9) 05/23/23 09:10 Eos # (Auto) 0.4 10^3/uL (0.0-0.8) 05/23/23 09:10 Baso # (Auto) 0.0 10^3/uL (0.0-0.1) 05/23/23 09:10 Nucleated RBC % (auto) 0 % 05/23/23 09:10 Nucleated RBCs # 0.0 /100WBC 05/23/23 09:10 Sodium 139 mmol/L (136-145) 05/23/23 09:10 Potassium 4.0 mmol/L (3.5-5.1) 05/23/23 09:10 Chloride 103 mmol/L (98-107) 05/23/23 09:10 Carbon Dioxide 26 mmol/L (22-29) 05/23/23 09:10 Anion Gap 14.0 (5-19) 05/23/23 09:10 BUN 14 mg/dL (8-23) 05/23/23 09:10 Creatinine 0.5 mg/dL (0.5-0.9) 05/23/23 09:10 GFR Calculation Not Reportable 05/23/23 09:10 Glucose 101 mg/dL (65-115) 05/23/23 09:10 Calculated Osmolality 289 mOsm/kg (285-295) 05/23/23 09:10 Calcium 9.3 mg/dL (8.5-10.5) 05/23/23 09:10 Total Bilirubin 0.3 mg/dL (0.15-1.2) 05/23/23 09:10 AST 16 U/L (0-32) 05/23/23 09:10 ALT 19 U/L (0-33) 05/23/23 09:10 Alkaline Phosphatase 97 U/L (35-105) 05/23/23 09:10 Total Protein 6.3 g/dL (6.6-8.7) L 05/23/23 09:10 Albumin 3.9 g/dL (3.5-5.2) 05/23/23 09:10 Globulin 2.4 g/dL (1.3-4.6) 05/23/23 09:10 Urine Color Yellow (Yellow) 05/23/23 09:12 Urine Appearance Clear (CLEAR) 05/23/23 09:12 Urine pH 6 (5-7) 05/23/23 09:12 Ur Specific [place] 1.015 (1.005-1.030) 05/23/23 09:12 Urine Protein Neg (Negative) 05/23/23 09:12 Urine Glucose (UA) Norm (Normal) 05/23/23 09:12 Urine Ketones Negative (Negative) 05/23/23 09:12 Urine Blood Neg (Negative) 05/23/23 09:12 Urine Nitrate Negative (Negative) 05/23/23 09:12 Urine Bilirubin Neg (Negative) 05/23/23 09:12 Urine Urobilinogen Neg mg/dL (Negative) 05/23/23 09:12 Ur Leukocyte Esterase Negative (Negative) 05/23/23 09:12 Blood Type A Positive 05/28/23 11:15 Rho(D) Type Rh positive 05/28/23 11:15 Antibody Screen Negative 05/28/23 11:15 Vitals Last Vital Signs Temp 97.7 F 05/29/23 10:51 Pulse 58 L 05/29/23 10:51 Resp 16 05/29/23 10:51 BP 101/61 05/29/23 10:51 Pulse Ox 98 05/29/23 10:51 O2 Del Method Room Air 05/29/23 10:51 O2 Flow Rate 2 05/29/23 03:15 Results Labs OB ([facility]): Blood Type A Positive 05/28/23 Antibody Screen Negative 05/28/23 Hct 34.1 % (36-47) L 05/29/23 Hgb 11.00 g/dL (11.27-16.99) L 05/29/23 Rho(D) Type Rh positive 05/28/23 Plt Count 240 10^3/cmm (157-399) 05/29/23 Discharge Plan Discharge Patient Disposition: Home Condition: Good Prescriptions: New hydrocodone-acetaminophen 5-325 mg tablet 1 tab PO Q4H PRN (Reason: pain) Qty: 20 0RF metronidazole 500 mg tablet 500 mg PO BID 14 Days Qty: 28 0RF acetaminophen 325 mg capsule 325 mg PO Q4H PRN (Reason: fever or pain) Qty: 60 0RF docusate sodium [Colace] 100 mg capsule 100 mg PO BID Qty: 60 0RF nitrofurantoin macrocrystal 100 mg capsule 100 mg PO BID 5 Days Qty: 10 0RF Rx Instructions: must administer with a meal/food Continued Durolane 60 mg/3 mL syringe 3 ml intra-articular ONCE Qty: 3 0RF cephalexin 750 mg capsule 750 mg PO BID 7 Days Qty: 14 0RF TobraDex 0.3-0.1 % ointment 1 applic ophthalmic (eye) QID 7 Days Qty: 3.5 0RF Rx Instructions: space evenly during waking hours Biotene 25,000-30 unit Capsule 1 cap PO DAILY Vitamin D (with calcium) 77-400 mg-unit Tablet 1 tab PO DAILY Collagen Skin Renewal 30-833.3 mg Tablet 1 tab PO DAILY Discharge Orders: Discharge Order (Routine); Ordered 05/29/23 Ordered By: Micah Wharton Referrals: Micah Wharton MD [Physician] - 2 weeks Discharge Diet: Soft Mechanical Discharge Activity: Limit activity as instructed Patient Instructions: Bladder Sling for Women (GEN), Vaginal Hysterectomy (GEN), Anterior Vaginal Repair (GEN), Posterior Vaginal Repair (GEN), Opioid Safety Activity Restrictions/Additional Instructions: 1. Please call [facility] on next working day to make your post-operative appointment in 2 weeks. 2. Please stay home until you come back to the clinic on first post- hospatilization check up. 3. Please follow instructions on your medications CAREFULLY. 4. If you have abdominal incision, do not cover it unless dressing is necessary because of drainage. OK to shower, but avoid bath. Leave steri-strips until they fall off. If they are still on one week after surgery, you may remove them. 5. If you had vaginal surgery or vaginal repair, Dr. Wharton may instruct you to take SITZ bath. 6. Yellow, blood tinged odorous vaginal discharge is usually normal after hysterectomy or vaginal surgeries. 7. No SEXUAL INTERCOURSE, tampons, or douches until you are completely released from the post-operative care. 8. Avoid constipation by eating right and maybe using some Metamucil or Milk of Magnesia. 9. All prescription refills are given during the working hours. Please do no wait till it runs out. Call the clinic at [phone] before your medication runs out. The clinic will get in touch with your doctor to prescribe medications if necessary. 10. Please remain within 40 mile radius from our hospital because emergencies do happen now and then during the post-operative period. 11. If you have stairs at home, take one step at a time slowly and minimize the number of trips. It helps to stay in one floor for the next few days. No lifting except what you can lift by one hand until you are released from the post-operative care. 12. Driving is discouraged until you are well healed. It may be 3-4 weeks before you feel strong enough to drive. You should be able to turn and look through the rear window without pain and you should be able to push the brake pedal very hard without pain before you drive. No fast rules, but SAFETY should be your primary concern. DO NOT drive if you are on sedating medications such as narcotics. 13. Call the clinic (during working hours) to make urgent appointment or go to the Emergency room, if any of the following occurs: i. Vaginal bleeding becomes heavy, more than a period. ii. Incision becomes red and sore, or drains pus. iii. Your TEMPERATURE is over 100.4F or you have chill. iv. IV site becomes red and swollen (a little ``knot?? is usually OK) v. Persistent nausea and vomiting vi. Persistent constipation or diarrhea vii. Rash or allergic reaction to medications. Discharge Attestations [employer] Time Spent in Discharge Care*: greater than 30 min Coding Level of Care Code Acute Code for Chg Fwd
[2023-05-29 12:45] VITALS: BP 105/62; PULSE 63; RESP 16; TEMP 36.7; O2SAT 96
== END 2023-05-29 13:00 | disposition home or self-care (01) ==
LOC: OBGYN 15:41
PROVIDERS: Admitting Provider Obstetrics & Gynecology; PCP Nurse Practitioner Family; Visit Provider Obstetrics & Gynecology
PROC: (CPT 57260; principal; 2023-05-28 12:35)
PROC: 0JQC0ZZ Repair Pelvic Region Subcutaneous Tissue and Fascia, Open Approach (ICD-10-PCS; CPT 57240; 2023-05-28 12:35)
PROC: (CPT 57250; 2023-05-28 12:35)
PROC: (CPT 57288; 2023-05-28 12:35)
PROC: (CPT 58700; 2023-05-28 12:35)
DX: N81.3 Complete uterovaginal prolapse (principal); N72 Inflammatory disease of cervix uteri
CPT/HCPCS: 57260; 57282; 57288; 58262; 36415; 80053; 81003; 85025; 85027; 86850; 86900; 88307; 93005; 96374; 96376; C1713; C1762; G0378; J0694; J1100; J1650; J1885; J2405; J2704; J3010; J3490; J7030; J7121

== ENCOUNTER → 2023-06-10 15:35 | Outpatient (BNVA) | payer MEDICARE, SELFPAY | PROVIDERS: PCP Nurse Practitioner Family; Referring Provider Nurse Practitioner Family; Visit Provider Specialist | DX: G56.02 Carpal tunnel syndrome, left upper limb (principal) | CPT/HCPCS: 36415; 73130; 80053; 81001; 85025; 87086; 99214 ==

== ENCOUNTER → 2023-07-02 09:09 | Outpatient (BNVA) | payer MEDICARE, SELFPAY | PROVIDERS: PCP Nurse Practitioner Family; Visit Provider Family Medicine | DX: Z01.818 Encounter for other preprocedural examination (principal) | CPT/HCPCS: 80053; 81003; 85025 ==

== ENCOUNTER 2023-07-18 06:41 | Day surgery (SDC) | payer MEDICARE, SELFPAY ==
[2023-07-18] VITALS (11 sets, daily range): BP systolic 100–143; BP diastolic 52–73; PULSE 63–77; RESP 12–20; TEMP 36–36.6; O2SAT 93–100; BMI 28.9
[2023-07-18] MEDS: sodium chloride 0.9% 1,000 ML 30 ML IV (07:00)
[2023-07-18] MEDS: acetaminophen 1,000 MG/100 ML PIGGYBACK 400 MG IV (07:00)
[2023-07-18] MEDS: gabapentin 300 mg Capsule PO (07:01)
--- NOTE | 2023-07-18 07:40 | P.ANESASSM_ITS ---
Pre-Anesthetic Assessment Height/Weight: Height 1.65 m Weight 78.925 kg Temp Pulse Resp BP Pulse Ox O2 Del Method 97.3 F L 63 18 143/73 96 Room Air 07/18/23 06:53 07/18/23 06:53 07/18/23 06:53 07/18/23 06:53 07/18/23 06:53 07/18/23 07:11 Operation Date: 07/18/23 08:15 Proposed Procedures p Carpal Tunnel Release(Left) - Perla Granados MD Familial anesthetic complications: None Was Beta David taken within 24 hours: N/A Was Clonidine taken within 24 hours: N/A Last intake: Intake Last Liquid Date 07/17/23 Last Liquid Time 18:00 Last Solid Date 07/17/23 Last Solid Time 18:00 Social No alcohol and No tobacco Exam alert, oriented x 3, clear to auscultation bilaterally and regular rate & rhythm Airway Mallampati: Class I Dentition: other (missing) Anesthetic Plan ASA status: 1 Anesthesia: General Risk of > 500 ml blood loss (7ml/kg in children): No Medications/Allergies Home Medications Medication Instructions Recorded Confirmed Last Taken Type acetaminophen 325 mg capsule 325 mg PO Q4H PRN fever or pain 05/29/23 07/18/23 Unknown Rx #60 caps metronidazole 500 mg tablet 500 mg PO BID 14 days #28 tabs 07/12/23 07/15/23 07/17/23 Rx Allergies Allergy/AdvReac Type Severity Reaction Status Date / Time celecoxib [From Celebrex] Allergy ADR-Halluci Verified 07/18/23 06:51 nating codeine Allergy ADR-Confusi Verified 07/18/23 06:51 on hydrocodone Allergy ADR-Anxiety Verified 07/18/23 06:51 Current Medications Generic Name Dose Route Start Last Admin Trade Name Freq PRN Reason Stop Dose Admin Sodium Chloride 1,000 mls @ 30 mls/hr 07/18/23 06:45 07/18/23 07:00 Sodium Chloride 0.9% IV 07/19/23 06:44 30 mls/hr .Q24H MICHAEL Administration PFSH Anesthesia Medical History ACL (anterior cruciate ligament) tear No pertinent past medical history neghx: htn, dm, thyroid, dvt/pe PCP: Katerina Fitzpatrick, [facility] Surgical History H/O vaginal hysterectomy (~05/28/23) TVH, RSO, anterior colporrhaphy augmented with allograft, single incision mid urethral sling, posterior colporrhaphy, sacrospinous fixation, cystoscopy performed by Dr. Wharton at [facility] for pelvic organ prolapse stage III, cystocele stage III, rectocele stage III. Benign pathology History of carpal tunnel release Social History Smoking and tobacco/nicotine status: never used tobacco/nicotine Data Anesthesia Cardiac Studies: No Data to Display
--- NOTE | 2023-07-18 07:50 | W.PM.OPSUD ---
Surgery/Procedure H&P Update DATE OF PROCEDURE: July 18, 2023 DATE H&P PERFORMED: 07/02/23 H&P UPDATE INFORMATION: I have reviewed H&P completed within last 30 days, I have examined patient prior to procedure, No changes to prior documentation and H&P is in [facility] [place] on date indicated PLANNED PROCEDURE: Operation Date: 07/18/23 08:15 Proposed Procedures p Carpal Tunnel Release(Left) - Perla Granados MD Related Problem List Diagnoses (1) Left carpal tunnel syndrome:
[2023-07-18] MEDS: ceFAZolin 2,000 MG in sodium chloride 0.9% (plus) 50 ML 100 MG IV (07:58)
[2023-07-18] MEDS: BUPivacaine 0.5% INJ 30 mL XX (08:25)
--- NOTE | 2023-07-18 08:50 | P.OP_ITS ---
Operative Report Date of procedure: July 18, 2023 Pre-op diagnosis: Left carpal tunnel syndrome Post-op diagnosis: Left carpal tunnel syndrome Post-op findings: Severe compression across the carpal canal with slight discoloration of the median nerve Procedure done: Left carpal tunnel release Implants: None Specimens removed/disposition: None Surgeon: Perla Granados MD Acid Recovery Operator: None Anesthesia: General (General per LMA, ASA 1) Estimated blood loss (mL): 1 Tourniquet time (min): 15 (At 250 mmHg) IV fluids (mL): 400 Urine output (mL): 0 (No [place]) Complications: None Findings: Significant compression across carpal canal with tight transverse carpal ligament Condition: stable Disposition: PACU (During return to same-day surgery for discharge to home) Brief History: This 73-year-old woman presents today with left carpal tunnel syndrome. She presents for carpal tunnel release. The patient's carpal tunnel syndrome was confirmed with nerve conduction studies. The patient had symptoms that awaken her at night with significant numbness. She had difficulties with activities of daily living. Risks and complications were discussed with the patient, and consents were signed. Questions were answered. Procedure: The patient was brought to the operating theater. The patient had a general anesthesia per LMA, ASA 1. The tourniquet was elevated to 250 mmHg for a total tourniquet time of 15 minutes. The patient was also given Ancef 2 g preoperatively. The arm was then prepped and draped with DuraPrep in usual fashion with the arm draped free. A surgical pause was performed. At the time, the surgical pause, we confirmed the site and side of surgery. We also confirmed the patient's identity, appropriate and timely administration of preoperative antibiotics and preoperative surgical markings. An incision was then made along the thenar crease. The incision crossed the wrist joint in a curvilinear fashion. Dissection continued through skin and soft tissues using a scalpel. The palmaris longus was identified along with the transverse carpal ligament. Each of these was released carefully to avoid injury to the median nerve. We were able to dissect gently into the carpal canal which was noted to be quite tight with significant compression across the median nerve. The nerve was visualized and was an hourglass shape. The canal was subsequently palpated to assure there was no bony encroachment upon the canal. There was a quite thickened fibrous tissue within the canal, and this was opened longitudinally as well. The canal was then palpated distally and proximally to assure that my small finger was passed easily without impingement. Finding this to be so, attention was directed to closure. The wound was irrigated with ropivacaine plain. It was then closed with 3-0 nylon in an interrupted mattress fashion. Sterile dressing was then placed consisting of Dermabond, OpSite, fluffed fluffs, sterile soft roll, and an Jerome wrap. The tourniquet was released after 15 minutes. There were no complications. There were no specimens. The procedure was well tolerated. Plan is the patient will be discharged home. Related Problem List Diagnoses (1) Left carpal tunnel syndrome:
--- NOTE | 2023-07-18 10:30 | ANE.PACU2 ---
Inpatient post-anesthesia follow up: Airway intact: Yes Vital signs: Temperature 97.8 F Pulse Rate 63 Respiratory Rate 16 Blood Pressure 111/53 Pulse Oximetry 94 Oxygen Delivery Me thod Room Air Oxygen Flow Rate 6 Fraction of Inspir ed Oxygen Hydration adequate: Yes Nausea and vomiting: No Pain level: 1 Mental status: Baseline
== END 2023-07-18 10:37 | disposition home or self-care (01) ==
PROVIDERS: PCP Nurse Practitioner Family; Visit Provider Specialist
PROC: (CPT 64721; principal; 2023-07-18 08:05)
DX: G56.02 Carpal tunnel syndrome, left upper limb (principal)
CPT/HCPCS: 64721; J0131; J0690; J1100; J2405; J2704; J3010; J3490; J7030; J9999

== ENCOUNTER → 2023-08-06 09:54 | Outpatient (BNVA) | payer MEDICARE, SELFPAY | PROVIDERS: PCP Nurse Practitioner Family; Visit Provider Specialist | DX: G56.02 Carpal tunnel syndrome, left upper limb (principal) | CPT/HCPCS: 99024 ==

== ENCOUNTER → 2023-10-18 09:34 | Outpatient (BNVA) | payer MEDICARE, SELFPAY | PROVIDERS: PCP Nurse Practitioner Family; Visit Provider Specialist | DX: M17.11 Unilateral primary osteoarthritis, right knee (principal); Z71.89 Other specified counseling | CPT/HCPCS: 20610; J7327 ==

== ENCOUNTER 2023-12-31 13:42 | Outpatient (CLI) | payer MEDICARE, SELFPAY ==
--- NOTE | 2023-12-31 14:06 | XR_ITS ---
WS: [id number] SCREENING DEXA SCAN [place] CLINICAL INFORMATION: POST MENOPAUSAL COMPARISON: None. FINDINGS: The L1-L4 bone mineral density measures 1.120 g/cm2. This corresponds to a T score score of -0.5 and Z score of 0.7. Left femoral neck bone mineral density measures 0.753 g/cm2. This corresponds to a T score of -2.0 an d Z score of -0.8. Right femoral neck bone mineral density measures 0.792 g/cm2. This corresponds to a T score -1.7of an d Z score of -0.5. Mean femoral neck bone mineral density measures 0.772 g/cm2. This corresponds to a T score of -1.9 an d Z score of -0.6. XR/XR DEXA axial skeleton* [id number] IMPRESSION: Normal bone mineralization lumbar spine. Osteopenia femoral necks. Patient's FRAX calculated 10 year probability for major osteoporotic fracture i s 14.0% and osteoporotic hip fracture is 3.5%.
== END 2023-12-31 13:43 | disposition home or self-care (01) ==
LOC: RAD 13:43
PROVIDERS: PCP Nurse Practitioner Family; Visit Provider Nurse Practitioner Family
DX: Z13.820 Encounter for screening for osteoporosis (principal); Z78.0 Asymptomatic menopausal state; M85.80 Other specified disorders of bone density and structure, unspecified site
CPT/HCPCS: 77080

== ENCOUNTER 2024-05-18 09:53 | Outpatient (CLI) | payer MEDICARE, SELFPAY ==
--- NOTE | 2024-05-18 10:01 | MM_ITS ---
WS: [id number] SCREENING DIGITAL BREAST TOMOSYNTHESIS MAMMOGRAM WITH CAD HISTORY: SCREENING COMPARISON: 12/20/2022, 11/12/2022, 07/29/2015 Bilateral CC and MLO with tomosynthesis and synthetic mammography submitted. Computer aided detection analyzed. Breast composition: There are scattered areas of fibroglandular density. Irregular spiculated high density mass upper outer quadrant of the RIGHT breast at a posterior depth. Mass measures 7 x 4 x 6 mm. Asymmetry continues to increase in size and density from 2022. No additional abnormalities within either breast. MM/MM [facility] tomosynthesis [id number] IMPRESSION: BI-RADS: 0 - Incomplete: Need additional imaging evaluation. FOLLOW UP: Need Additional Imaging RIGHT breast: Spot compression views (CC and MLO). True ML. Ultrasound to follo w if abnormality persists.
== END 2024-05-18 09:54 | disposition home or self-care (01) ==
LOC: RAD 09:56
PROVIDERS: PCP Nurse Practitioner Family; Visit Provider Nurse Practitioner Family
DX: Z12.31 Encounter for screening mammogram for malignant neoplasm of breast (principal); R92.323 Mammographic fibroglandular density, bilateral breasts; N63.11 Unspecified lump in the right breast, upper outer quadrant; N64.89 Other specified disorders of breast
CPT/HCPCS: 77063; 77067

== ENCOUNTER 2024-06-02 10:49 | Outpatient (CLI) | payer MEDICARE, SELFPAY ==
--- NOTE | 2024-06-02 10:55 | MM_ITS ---
WS: [id number] ADDITIONAL VIEWS RIGHT MAMMOGRAM WITH DIGITAL BREAST TOMOSYNTHESIS. RIGHT BREAST ULTRASOUND HISTORY: OTHER ABNORMAL INCONCLUSIVE FINDINGS ON IMAGAING OF BREAST COMPARISON: 05/18/2024, 12/20/2022 RIGHT MAMMOGRAM: Spot compression views and true ML with digital breast tomosynthesis and SM. Breast composition: There are scattered areas of fibroglandular density. Spiculated high density mass persists in the upper outer quadrant of the RIGHT breast posteriorly measuring 7 x 5 x 6 mm. Ultrasound to follow. RIGHT BREAST ULTRASOUND 2-D and color Doppler imaging submitted. Hypoechoic mass with posterior shadowing noted in the RIGHT breast posteriorly at 10:00, 5 cm from the nipple. Mass measures 0.4 x 0.5 x 0.4 cm. No increased vascularity. MM/MM diag [facility] tomosynthesis [id number] IMPRESSION: BI-RADS: 4 - Suspicious Finding - Biopsy Should Be Considered. FOLLOW UP: Biopsy Recommended Notified TISHA Taylor at 06/02/2024 12:06 PM.
== END 2024-06-02 10:50 | disposition home or self-care (01) ==
LOC: RAD 10:51
PROVIDERS: PCP Nurse Practitioner Family; Visit Provider Nurse Practitioner Family
DX: R92.8 Other abnormal and inconclusive findings on diagnostic imaging of breast (principal); R92.323 Mammographic fibroglandular density, bilateral breasts; N63.11 Unspecified lump in the right breast, upper outer quadrant
CPT/HCPCS: 76642; 77061; G0279

== ENCOUNTER 2024-06-24 12:16 | Outpatient (CLI) | payer MEDICARE, SELFPAY ==
--- NOTE | 2024-06-24 12:26 | US_ITS ---
WS: [id number] ULTRASOUND-GUIDED RIGHT BREAST BIOPSY CLINICAL INFORMATION: R BREAST LUMP FINDINGS: The procedure including risks, benefits, and complications were discussed with the patient who agreed to proceed. Using sterile technique patient was prepped and draped in the usual sterile fashion. After 1% lidocaine utilizing real-time ultrasound guidance 5 14-gauge cores were obtained of the RIGHT breast lesion at the 10 o'clock position 5 cm from the nipple. Subsequently a titanium clip was placed in the biopsy cavity. No immediate complications. US/[place] [id number] IMPRESSION: 1. Uncomplicated ultrasound-guided RIGHT breast biopsy. 2. The pathology demonstrates invasive mammary carcinoma with mixed lobular an d ductal features. Nuclear grade 1-2 out of 3. 3. Breast prognostic profile has been ordered and will be reported separately by pathology 4. Recommend breast surgery consultation DENSITY: There are scattered areas of fibroglandular density. BI-RADS: 6- Known Biopsy - Proven Malignancy FOLLOW UP: Surgical Biopsy Recommended
[2024-06-29 10:30] LABS: Breast Profile ER,PR,HER2,Ki-6 See Report
== END 2024-06-24 12:17 | disposition home or self-care (01) ==
LOC: RAD 12:20
PROVIDERS: PCP Nurse Practitioner Family; Visit Provider Nurse Practitioner Family
DX: C50.411 Malignant neoplasm of upper-outer quadrant of right female breast (principal); R92.323 Mammographic fibroglandular density, bilateral breasts
CPT/HCPCS: 19083; 88305; 88361; 88374